=== PATIENT | male | born 1990 | race American Indian/Alaskan Native ===

== ENCOUNTER 2017-04-02 09:16 | Emergency (ER) | payer SELFPAY ==
[2017-04-02 09:25] VITALS: BP 134/78
--- NOTE | 2017-04-02 11:02 | Emergency Department Report ---
ED Rash HPI - HPI Chief Complaint: Skin Rash Stated Complaint: RASH ON PENIS Time Seen by Provider: 04/02/17 10:57 Duration: months Location: Other Suspected Cause: Unknown Rash Symptoms: Yes Itching (minimal), Yes Peeling, No Facial Swelling, No Tongue /Oral Swelling, No Breathing Difficulties, No Choking Sensation, No Wheezing/ Dyspnea, No Blistering, No Fever, No Lightheaded, No Malaise, No Myalgias Severity: mild Other History: Reports rash to head of penis for months. Tested neg for syphilis. Also notes he does not believe he has an STD as his partner just gave and tested negative for everything. ED Review of Systems ROS: Stated complaint: RASH ON PENIS Other details as noted in HPI Comment: All other systems reviewed and negative Constitutional: denies: chills, fever Eyes: denies: eye pain, eye discharge, vision change ENT: denies: ear pain, throat pain Respiratory: denies: cough, shortness of breath, wheezing Cardiovascular: denies: chest pain, palpitations Endocrine: no symptoms reported Gastrointestinal: denies: abdominal pain, nausea, diarrhea Genitourinary: denies: urgency, dysuria Musculoskeletal: denies: back pain, joint swelling, arthralgia Skin: denies: rash, lesions Neurological: denies: headache, weakness, paresthesias Psychiatric: denies: anxiety, depression Hematological/Lymphatic: denies: easy bleeding, easy bruising ED Past Medical Hx - Past Medical History Previous Medical History?: No Additional medical history: MRSA on inner thigh approx 7-8 years ago - Surgical History Past Surgical History?: No - Social History Smoking Status: Current Every Day Smoker Substance Use Type: None - Medications Home Medications: Home Medications Medication Instructions Recorded Confirmed Last Taken Type HYDROcodone/APAP 10-325 [[place] 1 each PO Q6HR PRN #12 tablet 12/20/14 Unknown Rx 10-325 mg TAB] Ranitidine HCl [Zantac 150 MG TAB] 150 mg PO DAILY #10 tablet 12/20/14 Unknown Rx diphenhydrAMINE [Benadryl CAP] 25 mg PO Q8HR PRN #20 capsule 12/20/14 Unknown Rx predniSONE [Deltasone] 20 mg PO BID 5 Days tab 12/20/14 Unknown Rx Rash Exam - Exam General: Vital signs noted. No distress. Alert and acting appropriately. HEENT: No Periorbital Edema, No Conjuctival Injection, No Chemosis, No Perioral Edema, No Tongue Edema, No Uvular Edema, No Compromised Airway, No Drooling Lungs: Yes Good Air Exchange (Normal Breath Sounds), No Wheezes, No Ronchi, No Stridor, No Cough, No Labored Respirations, No Retractions, No Use of Accessory Muscles, No Other Abnormal Lung Sounds Heart: Yes Regular, No Murmur Skin: Yes Other (peeling to small area on glans of penis. ), No Urticarial Rash , No Maculopapular Rash, No Morbilliform rash, No Bulla(e), No Excoriations, No Weeping, No Tenderness, No Erythema, No Edema, No Encrustations Other: Positive: Abdomen Normal, Neurologic Normal, Musculoskeletal Normal ED Course Vital Signs 04/02/17 09:21 Temperature 98.5 F Pulse Rate 76 Respiratory 18 Rate Blood Pressure 134/78 O2 Sat by Pulse 99 Oximetry - Reevaluation(s) Reevaluation #1: 04/02/17 10:59 Pt is in NAD and stable for d/c. ED Medical Decision Making - Medical Decision Making Advise OTC antifungal/moisturizing cream and derm follow up. Discussed this does not appear to be cancerous however he needs to see derm due to chronicity. - Differential Diagnosis fungal, syphilis, skin ca Critical care attestation.: If time is entered above; I have spent that time in minutes in the direct care of this critically ill patient, excluding procedure time. ED Disposition Clinical Impression: Penile rash Disposition: TO HOME OR SELFCARE Is pt being admited?: No Condition: Good Instructions: Acute Rash (ED) Additional Instructions: Would recommend trying OTC moisturizing cream or antifungal cream such as clotrimazole. Follow up with dermatology. Referrals: PRIMARY CARE, [Primary Care Provider] - 3-5 Days JASMEET DAVILA MD [Referring] - 3-5 Days Time of Disposition: 11:01
== END 2017-04-02 11:16 | disposition home or self-care (01) ==
LOC: ED 09:16
DX: R21 Rash and other nonspecific skin eruption (principal); F17.200 Nicotine dependence, unspecified, uncomplicated
CPT/HCPCS: 99282

== ENCOUNTER 2021-12-21 13:22 | Emergency (ER) | payer SELFPAY ==
[2021-12-21] MEDS ORDERED: dexAMETHasone 20 MG/5 ML VIAL IV ONE (21:55)
[2021-12-21] MEDS ORDERED: MORPHINE 4 MG/1 ML INJ IV ONE (21:55)
[2021-12-21] MEDS ORDERED: KETOROLAC 30 MG/1 ML INJ IV ONE (21:55)
[2021-12-21] MEDS ORDERED: ONDANSETRON 4 MG/2 ML INJ IV ONE (21:55)
--- NOTE | 2021-12-21 22:34 | Cat Scan Report ---
CT HEAD WITHOUT CONTRAST INDICATION / CLINICAL INFORMATION: left ear pain: r/o mastoiditis. TECHNIQUE: All CT scans at this location are performed using CT dose reduction for ALARA by means of automated exposure control. COMPARISON: None available. FINDINGS: BRAIN PARENCHYMA: No acute intracranial hemorrhage. No evidence of recent infarct. No mass effect or midline shift. VENTRICULAR SYSTEM/EXTRA-AXIAL SPACES: Ventricles are normal for age. No extra-axial fluid collection . ORBITS: Normal as visualized. SKELETAL SYSTEM/SOFT TISSUES: Calvarium and extra calvarial soft tissues are within normal limits. Th ere is extensive soft tissue inflammation and edema involving the preauricular soft tissues with raul a and thickening of the external auditory canal. No discrete fluid in the middle ear. PARANASAL SINUSES/MASTOID AIR CELLS: Mastoid air cells are clear. Paranasal sinuses are unremarkable. ADDITIONAL FINDINGS: None IMPRESSION: 1. Findings consistent with acute otitis externa. Left mastoid air cells are clear. No evidence of ne crotizing otitis externa. 2. No acute intracranial abnormality. Signer Name: Gio Olivares MD Signed: 12/21/2021 10:30 PM Workstation Name: [id number]
[2021-12-21 23:16] LABS: Basophils # (Auto) 0.1 K/mm3 (0.0-0.1); Basophils % (Auto) 0.7 % (0.0-1.8); Eosinophils # (Auto) 0.4 K/mm3 (0.0-0.4); Eosinophils % (Auto) 3.1 % (0.0-4.3); Hematocrit 43.1 % (35.5-45.6); Hemoglobin 14.5 gm/dl (11.8-15.2); Lymphocytes # (Auto) 2.4 K/mm3 (1.2-5.4); Lymphocytes % (Auto) 18.3 % (13.4-35.0); Mean Corpuscular HGB Conc 34 % (32-34); Mean Corpuscular Volume 91 fl (84-94); Monocytes # (Auto) 1.5 K/mm3 (0.0-0.8); Monocytes % (Auto) 10.9 % (0.0-7.3); Platelet Count 311 K/mm3 (140-440); Red Blood Count 4.74 M/mm3 (3.65-5.03); Red Cell Distribution Width 13.7 % (13.2-15.2)
[2021-12-21 23:31] LABS: Alanine Aminotransferase 22 units/L (7-56); Albumin 4.2 g/dL (3.9-5); BUN/Creatinine Ratio 11; Blood Urea Nitrogen 11 mg/dL (9-20); Calcium 9.3 mg/dL (8.4-10.2); Hemolysis Index 4
--- NOTE | 2021-12-22 00:14 | Emergency Department Report ---
ED General Adult HPI - General Chief complaint: Earache Stated complaint: EAR PAIN/MIGRAINES Source: patient Mode of arrival: Ambulatory Limitations: No Limitations - History of Present Illness Initial comments: Patient is a 31-year-old -Armenian male with no past medical history who presents to the ED with complaint of acute onset persistent left ear pain with swelling of the external ear canal and painful preauricular and postauricular lymph nodes and headache for the last 2 days. Patient states that he also noticed that the last 12 hours he has been experiencing thick purulent discharge draining from the left ear with worsening pain. Patient denies dizziness, chest pain, shortness of breath, fever, chills, nausea and vomiting or hearing loss, neck pain, change in vision, traumatic injury, back pain or abdominal pain. MD Complaint: Left ear pain, swelling, thick purulent discharge -: Sudden, days(s) (2) Location: face (left ear) Radiation: non-radiation Severity scale (0 -10): 10 Quality: aching, sharp Consistency: constant Improves with: none Worsens with: none Associated Symptoms: denies other symptoms, headaches. denies: chest pain, cough, diaphoresis, fever/chills, malaise, nausea/vomiting, rash, seizure, shortness of breath, syncope, weakness Treatments Prior to Arrival: none - Related Data Previous Rx's Medication Instructions Recorded Last Taken Type HYDROcodone/APAP 10-325 [[place] 1 each PO Q6HR PRN #12 tablet 12/20/14 Unknown Rx 10-325 mg TAB] diphenhydrAMINE [Benadryl CAP] 25 mg PO Q8HR PRN #20 capsule 12/20/14 Unknown Rx predniSONE [Deltasone] 20 mg PO BID 5 Days tab 12/20/14 Unknown Rx raNITIdine HCl [Zantac 150 MG TAB] 150 mg PO DAILY #10 tablet 12/20/14 Unknown Rx Clindamycin [Clindamycin CAP] 300 mg PO Q6H #40 cap 12/22/21 Unknown Rx Ibuprofen [Motrin] 800 mg PO Q8HR PRN #30 tablet 12/22/21 Unknown Rx Ofloxacin 0.3% [Floxin 0.3% Otic] 5 drop OT BID #5 ml 12/22/21 Unknown Rx traMADoL [Ultram] 50 mg PO Q6HR PRN #12 tablet 12/22/21 Unknown Rx Allergies Allergy/AdvReac Type Severity Reaction Status Date / Time Penicillins Allergy Intermediate Unknown Verified 12/21/21 14:28 ED Review of Systems ROS: Stated complaint: EAR PAIN/MIGRAINES Other details as noted in HPI Constitutional: denies: chills, fever Eyes: denies: eye pain, eye discharge, vision change ENT: ear pain (Left ear pain), other (Swollen, external ear canal pain). denies: throat pain, dental pain, hearing loss, epistaxis, congestion Respiratory: denies: cough, shortness of breath, wheezing Cardiovascular: denies: chest pain, palpitations Endocrine: no symptoms reported Gastrointestinal: denies: abdominal pain, nausea, vomiting, diarrhea Genitourinary: denies: urgency, dysuria Musculoskeletal: denies: back pain, joint swelling, arthralgia Skin: denies: rash, lesions Neurological: headache. denies: weakness, paresthesias Psychiatric: denies: anxiety, depression Hematological/Lymphatic: denies: easy bleeding, easy bruising ED Past Medical Hx - Past Medical History Additional medical history: MRSA on inner thigh approx 7-8 years ago - Social History Smoking Status: Current Every Day Smoker - Medications Home Medications: Home Medications Medication Instructions Recorded Confirmed Last Taken Type HYDROcodone/APAP 10-325 [[place] 1 each PO Q6HR PRN #12 tablet 12/20/14 Unknown Rx 10-325 mg TAB] diphenhydrAMINE [Benadryl CAP] 25 mg PO Q8HR PRN #20 capsule 12/20/14 Unknown Rx predniSONE [Deltasone] 20 mg PO BID 5 Days tab 12/20/14 Unknown Rx raNITIdine HCl [Zantac 150 MG TAB] 150 mg PO DAILY #10 tablet 12/20/14 Unknown Rx Clindamycin [Clindamycin CAP] 300 mg PO Q6H #40 cap 12/22/21 Unknown Rx Ibuprofen [Motrin] 800 mg PO Q8HR PRN #30 tablet 12/22/21 Unknown Rx Ofloxacin 0.3% [Floxin 0.3% Otic] 5 drop OT BID #5 ml 12/22/21 Unknown Rx traMADoL [Ultram] 50 mg PO Q6HR PRN #12 tablet 12/22/21 Unknown Rx ED Physical Exam - General Limitations: No Limitations General appearance: alert, in no apparent distress - Head Head exam: Present: atraumatic, normocephalic, normal inspection - Eye Eye exam: Present: normal appearance, PERRL, EOMI Pupils: Present: normal accommodation - ENT ENT exam: Present: normal orophraynx, mucous membranes moist, other (Painful swollen external left ear with purulent discharge; swollen tympanic membrane with purulent discharge) - Neck Neck exam: Present: normal inspection, full ROM, lymphadenopathy (left preauricular and post-auricular lymphadenopathy). Absent: tenderness - Respiratory Respiratory exam: Present: normal lung sounds bilaterally. Absent: respiratory distress, wheezes, rales, rhonchi, stridor, chest wall tenderness, accessory muscle use, decreased breath sounds, prolonged expiratory - Cardiovascular Cardiovascular Exam: Present: regular rate, normal rhythm, normal heart sounds. Absent: systolic murmur, diastolic murmur, rubs, gallop - GI/Abdominal GI/Abdominal exam: Present: soft, normal bowel sounds. Absent: tenderness, guarding, rebound, hyperactive bowel sounds, hypoactive bowel sounds, organomegaly - Extremities Exam Extremities exam: Present: normal inspection, full ROM, normal capillary refill - Back Exam Back exam: Present: normal inspection, full ROM. Absent: tenderness, CVA tenderness (R), CVA tenderness (L), muscle spasm, paraspinal tenderness, vertebral tenderness - Neurological Exam Neurological exam: Present: alert, oriented X3, CN II-XII intact, normal gait, reflexes normal - Psychiatric Psychiatric exam: Present: normal affect, normal mood - Skin Skin exam: Present: warm, dry, intact, normal color. Absent: rash ED Course Vital Signs 12/21/21 12/21/21 14:25 22:53 Temperature 98.1 F Pulse Rate 76 Respiratory 12 16 Rate Blood Pressure 143/98 [Left] O2 Sat by Pulse 100 Oximetry ED Medical Decision Making - Lab Data Result diagrams: 12/21/21 22:31 12/21/21 22:31 - Radiology Data Radiology results: report reviewed, image reviewed [facility] [address] [place] [address] Cat Scan Report Signed Patient: MARIE HARMON MR#: [id number] : 1990 Acct:[id number] Age/Sex: 31 / M ADM Date: 12/21/21 Loc: ED Attending Dr: Ordering Physician: LEE BLOOM Date of Service: 12/21/21 Procedure(s): CT head/brain wo con Accession Number(s): [id number] cc: LEE BLOOM CT HEAD WITHOUT CONTRAST INDICATION / CLINICAL INFORMATION: left ear pain: r/o mastoiditis. TECHNIQUE: All CT scans at this location are performed using CT dose reduction for ALARA by means of automated exposure control. COMPARISON: None available. FINDINGS: BRAIN PARENCHYMA: No acute intracranial hemorrhage. No evidence of recent infarct. No mass effect or midline shift. VENTRICULAR SYSTEM/EXTRA-AXIAL SPACES: Ventricles are normal for age. No extra-axial fluid collection. ORBITS: Normal as visualized. SKELETAL SYSTEM/SOFT TISSUES: Calvarium and extra calvarial soft tissues are within normal limits. There is extensive soft tissue inflammation and edema involving the preauricular soft tissues with edema and thickening of the external auditory canal. No discrete fluid in the middle ear. PARANASAL SINUSES/MASTOID AIR CELLS: Mastoid air cells are clear. Paranasal sinuses are unremarkable. ADDITIONAL FINDINGS: None IMPRESSION: 1. Findings consistent with acute otitis externa. Left mastoid air cells are clear. No evidence of necrotizing otitis externa. 2. No acute intracranial abnormality. Signer Name: Jean Pierre Olivares MD Signed: 12/21/2021 10:30 PM Workstation Name: [id number] Transcribed By: JOSE Dictated By: JEAN PIERRE OLIVARES MD Electronically Authenticated By: JEAN PIERRE OLIVARES MD Signed Date/Time: 12/21/212229 DD/ 25 TD/TT: - Medical Decision Making This is a 31-year-old -Armenian male with no past medical history who presents to the ED with complaint of acute onset persistent left ear pain with swelling of the external ear canal and painful preauricular and postauricular lymph nodes and headache for the last 2 days. Patient states that he also noticed that the last 12 hours he has been experiencing thick purulent discharge draining from the left ear with worsening pain. In the ED, patient is alert and oriented x 3 and is in no acute distress. Patient however appears to be in significant pain. Lab test results were reviewed and are all nonactionable. The head CT scan without contrast showed findings consistent with acute otitis externa. Left mastoid air cells are clear. No evidence of necrotizing otitis externa. No acute intracranial abnormality. Patient was treated for pain in the ED, and also given antibiotics in the ED. On reevaluation, patient's pain is well controlled medication. Patient will discharge home on pain medications and antibiotics and advised to follow-up with his primary care physician in 7 to 10 days for reevaluation. Patient was advised to return to the ED immediately if symptoms get worse. - Differential Diagnosis otitis externa; Suppurative otitis media; lymphadenopthy Critical care attestation.: If time is entered above; I have spent that time in minutes in the direct care of this critically ill patient, excluding procedure time. ED Disposition Clinical Impression: Postauricular lymphadenopathy, Acute suppurative otitis media of left ear Acute otitis externa of left ear Qualifiers: Otitis externa type: unspecified type Qualified Code(s): H60.502 - Unspecified acute noninfective otitis externa, left ear Disposition: 01 HOME / SELF CARE / HOMELESS Is pt being admited?: No Does the pt Need Aspirin: No Condition: Stable Instructions: Otitis Media (ED), Otitis Media, Adult, [id number], Ear Drops, Adult, [id number], Otitis Externa, [id number], Lymphadenopathy Additional Instructions: Take medication with food, drink plenty of fluids and follow-up with your primary care physician in 7 to 10 days for reevaluation. Return to the ED immediately if symptoms get worse. Prescriptions: Clindamycin [Clindamycin CAP] 300 mg PO Q6H #40 cap Ofloxacin 0.3% [Floxin 0.3% Otic] 5 drop OT BID #5 ml Ibuprofen [Motrin] 800 mg PO Q8HR PRN #30 tablet PRN Reason: Pain , Severe (7-10) traMADoL [Ultram] 50 mg PO Q6HR PRN #12 tablet PRN Reason: Pain Referrals: KARRI MARTIN MD [Primary Care Provider] - 3-5 Days Forms: Work/School Release Form(ED) Time of Disposition: 00:18 Print Language: PASHTO
[2021-12-22 01:15] VITALS: BP 131/81
== END 2021-12-22 01:15 | disposition home or self-care (01) ==
LOC: ED 13:22
DX: H66.002 Acute suppurative otitis media without spontaneous rupture of ear drum, left ear (principal); H66.92 Otitis media, unspecified, left ear; R59.1 Generalized enlarged lymph nodes; F17.200 Nicotine dependence, unspecified, uncomplicated; Z88.0 Allergy status to penicillin
CPT/HCPCS: 36415; 70450; 80053; 85025; 96365; 96375; 99284; J1100; J1885; J2270; J2405; J7502